=== PATIENT | male | born 1945 | race Caucasian/White ===

== ENCOUNTER 2017-02-28 20:07 | Emergency (ER) | payer MEDICARE, BC ==
--- NOTE | 2017-02-28 20:50 | NUR ---
CALLED FOR PT NO ANSWER LWBT
== END 2017-02-28 20:50 | disposition left against medical advice (07) ==
LOC: ER 20:08
DX: Z53.21 Procedure and treatment not carried out due to patient leaving prior to being seen by health care provider (principal)